=== PATIENT | male | born 1930 | race Caucasian/White ===

== ENCOUNTER → 2016-07-28 | Outpatient (REF) | payer MEDICARE, BC ==
[2016-07-28 10:52] LABS: BASOPHILS % (AUTO) 0 % (0-2); EOSINOPHILS # (AUTO) 0.1 10^3uL; EOSINOPHILS % (AUTO) 2 % (0-4); LYMPHOCYTES # (AUTO) 1.1 X10^3; MEAN PLATELET VOLUME 11.5 FL (6.0-9.5); MONOCYTES # (AUTO) 0.8 X10^3; MONOCYTES % (AUTO) 12 % (3-11); NEUTROPHILS # (AUTO) 4.7 X10^3; NEUTROPHILS % (AUTO) 69 % (51-67); PLATELET COUNT 220 10^3uL (150-450); WHITE BLOOD COUNT 6.82 10^3uL (4.0-11.0)
[2016-07-28 10:54] LABS: MEAN CORPUSCULAR HEMOGLOBIN 23.7 PG (26.0-34.0); MEAN CORPUSCULAR HGB CONC 31.2 g/dL (31.0-37.0); MEAN CORPUSCULAR VOLUME 76 FL (80-100)
[2016-07-28 10:59] LABS: ANION GAP 17.2 MEQ/L (3-15); CALCULATED IONIZED CALCIUM 4.2 mg/dL (3.8-4.6); TOTAL PROTEIN 7.1 g/dL (6.4-8.5)
== END ==
LOC: LAB 09:43
PROVIDERS: ATTEND Family Medicine
DX: D64.89 Other specified anemias (principal); I50.21 Acute systolic (congestive) heart failure; E11.9 Type 2 diabetes mellitus without complications; I48.1 Persistent atrial fibrillation
CPT/HCPCS: 80053; 83036; 85025; 85610

== ENCOUNTER 2016-07-29 09:46 | Inpatient (IN) | payer MEDICARE ==
[~2016-07-29] VITALS: Ht 175.3 cm; Wt 94.7 kg
--- NOTE | 2016-07-29 09:51 | NUR ---
Pt admitted to room 308 via w/c accompanied by .
[2016-07-29 10:06] VITALS: BP 150/53
[2016-07-29] MEDS ORDERED: PROMETHAZINE HCL INJ 12.5 MG in SODIUM CHLORIDE 25 ML IV PRN (10:15)
[2016-07-29] MEDS ORDERED: MAG HYDROX/AL HYDROX/SIMETH 200-200-20/5 ML (MAG-AL PLUS) 30 ML UDC PO PRN (10:15)
[2016-07-29] MEDS ORDERED: ONDANSETRON 4 MG (ZOFRAN) ORAL DISSOLVE TAB PO PRN (10:15)
[2016-07-29] MEDS ORDERED: ACETAMINOPHEN 325 MG TAB (TYLENOL) PO PRN (10:15)
[2016-07-29] MEDS ORDERED: CALCIUM CARBONATE CHEWABLE 300 MG (TUMS) TABLET PO PRN (10:15)
[2016-07-29] MEDS ORDERED: GLUCAGON EMERGENCY 1 MG/KIT IM PRN (10:20)
[2016-07-29] MEDS ORDERED: DEXTROSE ORAL GEL (GLUTOSE 40%) 15 GM TUBE PO PRN (10:20)
[2016-07-29] MEDS ORDERED: DEXTROSE 50% 25 GM/50 ML SYRINGE IV PRN (10:20)
[2016-07-29 10:21] VITALS: BP 150/53
--- NOTE | 2016-07-29 10:35 | NUR ---
Pt to rad for CXR.
--- NOTE | 2016-07-29 10:43 | NUR ---
Back to room from Radiology. Eli RT in room for EKG. Accu Check finger stick- 362. Will correct with sliding scale insulin. 20g IV started by this nurse to RFA on first attempt without difficulty.
[2016-07-29 10:50] LABS: BASOPHILS % (AUTO) 0 % (0-2); EOSINOPHILS # (AUTO) 0.1 10^3uL; EOSINOPHILS % (AUTO) 2 % (0-4); LYMPHOCYTES # (AUTO) 0.6 X10^3; MEAN PLATELET VOLUME 11.1 FL (6.0-9.5); MONOCYTES # (AUTO) 0.8 X10^3; MONOCYTES % (AUTO) 14 % (3-11); NEUTROPHILS % (AUTO) 73 % (51-67); PLATELET COUNT 195 10^3uL (150-450); WHITE BLOOD COUNT 5.53 10^3uL (4.0-11.0)
[2016-07-29 10:53] LABS: ALBUMIN 4.1 g/dL (3.4-5.0); ALKALINE PHOSPHATASE 90 U/L (38-126); ANION GAP 17.3 MEQ/L (3-15); BUN/CREATININE RATIO 18 (10-20); TOTAL PROTEIN 7.3 g/dL (6.4-8.5)
[2016-07-29] MEDS: INSULIN LISPRO 1 UNIT/0.01 ML (HUMALOG) DOSE SC SCH ×5 (10:58→21:00)
[2016-07-29 11:04] LABS: MEAN CORPUSCULAR HEMOGLOBIN 23.7 PG (26.0-34.0); MEAN CORPUSCULAR HGB CONC 31.7 g/dL (31.0-37.0); MEAN CORPUSCULAR VOLUME 75 FL (80-100)
[2016-07-29 11:09] VITALS: BP 126/57
[2016-07-29] MEDS ORDERED: NS FLUSH 3 ML PRN IV (11:35)
[2016-07-29] MEDS ORDERED: NS FLUSH 10 ML PRN IV (11:35)
[2016-07-29] MEDS ORDERED: FUROSEMIDE 100 MG/10 ML (LASIX) VIAL IV ONE (12:00)
[2016-07-29] MEDS ORDERED: NITROGLYCERIN SUBLINGUAL 0.4 MG (NITROQUICK) TABLET SL PRN (12:10)
[2016-07-29] MEDS ORDERED: ALBUTEROL/IPRATROPIUM 3MG-0.5MG/3ML (DUONEB) NEB VIAL INH PRN (12:15)
[2016-07-29 13:57] LABS: BILIRUBIN,URINE Negative (Negative); CLARITY,URINE Clear; COLOR,URINE Yellow; GLUCOSE, URINE (UA) 2+ (Negative); LEUKOCYTE ESTERASE ,URINE Negative (Negative); PH,URINE 6.5 (5.0 - 8.0); UROBILINOGEN,URINE 0.2 mg/dL (0.2-1.0)
[2016-07-29 14:23] LABS: RBC,URINE 0-2 /HPF; URINE CENTRIFUGED VOLUME 12 mL
--- NOTE | 2016-07-29 14:25 | NUR ---
MED REC COMPLETE--current list obtained from medication list provided by patient's PCP, patient report, and external med history application.
[2016-07-29] MEDS: FUROSEMIDE 100 MG/10 ML (LASIX) VIAL IV SCH (14:27)
--- NOTE | 2016-07-29 14:50 | NUR ---
Pt sitting up in chair in room. His and his sister are at bedside visiting patient. SL intact. Lasix 60mg given as ordered. Pt jokes with staff and is pleasant.
[2016-07-29 16:07] VITALS: BP 91/49
[2016-07-29] MEDS: warFARin 5 MG (COUMADIN) TAB PO SCH (17:28)
--- NOTE | 2016-07-29 18:00 | NUR ---
Pt sitting on edge of bed eating supper meal, denies needs. Remains on RA. Has voided approx 2,375ml clear yellow urine since admission.
--- NOTE | 2016-07-29 19:27 | NUR ---
IS instructed, Pt has good effort and technique with good breath hold. Pt has good understanding of the purpose of IS. 1500 ml x5.
[2016-07-29 20:11] VITALS: BP 140/61
[2016-07-29] MEDS: ATORVASTATIN 40 MG (LIPITOR) TABLET PO SCH (20:19)
[2016-07-29] MEDS ORDERED: BUDESONIDE NEBS 0.5 MG/2ML (PULMICORT) AMP INH SCH (21:00)
[2016-07-29] MEDS ORDERED: FLUTICASONE 220 MCG INH SCH (21:00)
[2016-07-29] MEDS: INSULIN DETEMIR 1 UNIT/0.01 ML (LEVEMIR) DOSE SC SCH (21:28)
[2016-07-30 00:04] VITALS: BP 140/60
[2016-07-30 04:25] VITALS: BP 151/63
[2016-07-30] MEDS: LEVOTHYROXINE 75 MCG (LEVOTHROID) TABLET PO SCH (06:18)
--- NOTE | 2016-07-30 06:36 | NUR ---
Patient rests in bed throughout night. Reports that he is able to breathe much better since admission. Sitting on bedside drinking coffee this AM. No needs at this time.
[2016-07-30] MEDS: INSULIN LISPRO 1 UNIT/0.01 ML (HUMALOG) DOSE SC SCH ×7 (07:08→21:00)
[2016-07-30 07:44] VITALS: BP 129/64
[2016-07-30] MEDS: ISOSORBIDE MONONITRATE 30 MG (IMDUR) TAB PO SCH (08:12)
[2016-07-30] MEDS: POTASSIUM CHLORIDE ER 20 MEQ TABLET PO SCH ×3 (08:12→21:33)
[2016-07-30] MEDS: CYANOCOBALAMIN 1000 MCG (VITAMIN B-12) TABLET PO SCH (08:12)
[2016-07-30] MEDS: VALSARTAN 160 MG (DIOVAN) TABLET PO SCH (08:13)
[2016-07-30] MEDS: meTOproloL SUCCINATE 50 MG (TOPROL XL) TAB PO SCH (08:13)
[2016-07-30] MEDS: ASPIRIN 81 MG CHEW (CHILDREN'S ASA) PO SCH (08:14)
[2016-07-30] MEDS: SPIRONOLACTONE 25 MG (ALDACTONE) TABLET PO SCH (08:14)
[2016-07-30] MEDS: FUROSEMIDE 100 MG/10 ML (LASIX) VIAL IV SCH ×2 (08:15→13:30)
[2016-07-30] MEDS: NS FLUSH 3 ML DAILY IV SCH (08:19)
--- NOTE | 2016-07-30 08:26 | NUR ---
NUTRITION ASSESSMENT Level 1 Patient: Judah Esposito Age/Sex: 85/M Date Screened: 07-30-16 Weight: 205.7#/93.5 kg Height: 69 inches Primary Diagnosis: CHF Diet Order: 2 g. sodium Relevant labs: glucose 126 (388 on admission) Food allergies: N Nutrition Assessment Criteria Age over 80: 4 points Body Mass Index (BMI) under 19: N Admission Screening Indicates Risk? N Moderate/High Risk Diagnosis: 3 points TPN or PPN: N NPO or clear liquid diet: N Serum Glucose <70 or >180: 3 points Hgb A1c >6.7: N/A Total: 10 points Risk Screen: __ Patient at low nutritional risk based on available data; reevaluate in 5-7 days __ Patient at moderate nutritional risk based on available data; reevaluate in 3-5 days _X_ Patient at high nutritional risk; complete Nutrition Assessment within 48 hours of admission.
[2016-07-30] MEDS ORDERED: ERGOCALCIFEROL 50,000 UNITS (1.25 MG) CAPSULE (VITAMIN D2) PO SCH (09:00)
[2016-07-30] MEDS ORDERED: POTASSIUM CHLORIDE ER 20 MEQ TABLET PO SCH (09:00)
--- NOTE | 2016-07-30 09:00 | NUR ---
IV SL intact to RFA. Flushes without difficulty. Fluid restriction explained to patient- verbalizes understanding.
--- NOTE | 2016-07-30 09:49 | NUR ---
NUTRITION ASSESSMENT Level II Patient: Judah Esposito Age/Sex: 85/M Date Assessed: 07-30-16 ASSESSMENT Pertinent History: Patient admitted with CHF and screened at high nutritional risk secondary to diagnosis and elderly age, with elevated blood sugar. PMHx includes CHF, a fib, HTN, diabetes, hypothyroidism, COPD, CAD and hx. tobacco abuse. He lives at home with his . Pt. denied GI concerns, and reports 4# weight gain from fluid. Meds/Nutrition: KCl, B 12, vitamin D, ASA, Spironolactone, Synthroid, Levemir, Coumadin, Lasix, Humalog Weight: 205.7#/93.5 kg Height: 69 inches Body Mass Index (BMI): 30.4 [place] Body Weight : 160#/72.7 kg % IBW: 128% GASTROINTESTINAL Appetite: good, eating 100% Diet Order: 2 g. sodium, medium diabetic, fluid restriction Unintentional loss of >10 lbs. in 3 months: N Difficult to chew/swallow: N Diabetes: Yes Relevant Labs: glucose 126 (388 on admission) Calculations for Nutritional Assessment Estimated calorie needs: 22-25 kcals/kg = 2,040-2,325 kcals Estimated protein needs: 1.0-1.1 g/kg ABW = 77-85 g./day DIAGNOSIS 1. Nutrition Diagnosis: Decreased sodium needs related to heart failure as evidenced by 4# weight gain with diagnosis. NUTRITIONAL INTERVENTION Goal: Patient will receive adequate nutrition to meet his needs. Plan: Will provide 2 g. sodium, medium diabetic diet as ordered, along with fluid restriction on meal trays per physician order. Will monitor intake for adequacy and adjust as needed. MONITORING & EVALUATION _X_ Monitor patients menu selections _X_ Monitor patients food intake per nursing notes __ Monitor NPO/clear liquid days _X_ Monitor lab values _X_ Monitor I&O _X_ Other--monitor weight
[2016-07-30 12:00] VITALS: BP 94/50
--- NOTE | 2016-07-30 13:20 | NUR ---
Notified Dr. Agee of BP 94/50 before administration of Lasix 60mg IV- okayed to given now. Lasix given. Pt has had and family visiting multiple times this shift. Pt ambulates indep in room. Educated patient to call for assist if he feels dizzy upon standing. Verbalizes understanding. Denies dizziness.
--- NOTE | 2016-07-30 15:19 | NUR ---
Pt ambulating halls with Melquiades Ramos PT. No c/o. Raina and callies with staff.
[2016-07-30 15:47] VITALS: BP 116/57
[2016-07-30] MEDS: warFARin 5 MG (COUMADIN) TAB PO SCH (17:35)
--- NOTE | 2016-07-30 17:54 | NUR ---
Pt sitting on edge of bed eating supper meal. Pt denies needs at this time. Resp rate even, nonlab. Remains on RA. Skin warm, dry. call light within reach.
--- NOTE | 2016-07-30 20:00 | NUR ---
Resting in bed. Watching TV. Is up ad katalina in room. Alert and oriented at this time. No SOA. No concerns at this time.
[2016-07-30 20:16] VITALS: BP 103/57
--- NOTE | 2016-07-30 20:55 | NUR ---
Pt denies any shortness of breath, No PRN intervention indicated.
[2016-07-30] MEDS: INSULIN DETEMIR 1 UNIT/0.01 ML (LEVEMIR) DOSE SC SCH (21:00)
--- NOTE | 2016-07-30 21:00 | NUR ---
Accu Check 75mg/dl. Dr Richardson notified of ordered HS insulin being [address] ordered 10 units of Levemir to be given at HS.
[2016-07-30] MEDS ORDERED: INSULIN DETEMIR 1 UNIT/0.01 ML (LEVEMIR) DOSE SC ONE (21:25)
[2016-07-30] MEDS: ATORVASTATIN 40 MG (LIPITOR) TABLET PO SCH (21:33)
--- NOTE | 2016-07-31 | NUR ---
Resting in bed. Remains oriented. Denies need for Tylenol. Denies pain, just cant sleep. Patient uses call light when he needs something. Call light within reach.
[2016-07-31 00:12] VITALS: BP 93/54
[2016-07-31 04:43] VITALS: BP 112/62
[2016-07-31 06:01] LABS: MEAN PLATELET VOLUME 10.8 FL (6.0-9.5); PLATELET COUNT 198 10^3uL (150-450); WHITE BLOOD COUNT 6.49 10^3uL (4.0-11.0)
[2016-07-31 06:05] LABS: ABSOLUTE RETIC # 57 10^3uL (22-82); MEAN CORPUSCULAR HEMOGLOBIN 23.4 PG (26.0-34.0); MEAN CORPUSCULAR HGB CONC 31.2 g/dL (31.0-37.0); MEAN CORPUSCULAR VOLUME 75 FL (80-100)
--- NOTE | 2016-07-31 06:19 | NUR ---
Accu Check is 126 mg/dl. Patient did lay back down to rest this morning. Very pleasant. Seems a little confused this morning. Call light within reach.
[2016-07-31] MEDS: LEVOTHYROXINE 75 MCG (LEVOTHROID) TABLET PO SCH (06:26)
[2016-07-31 06:30] LABS: ANISOCYTOSIS SLIGHT; BAND NEUTROPHILS % 0 % (0-6); EOSINOPHILS % 4 % (0-4); LYMPHOCYTES # 1.5 #; MONOCYTES % 17 % (3-11); RBC MORPH SEE REFERENCE (NORMAL); SEGMENTED NEUTROPHILS % 56 % (51-67); TOTAL CELLS COUNTED 100
[2016-07-31 06:53] LABS: ALBUMIN 3.7 g/dL (3.4-5.0); ANION GAP 13.4 MEQ/L (3-15); MAGNESIUM* 2.2 mg/dL (1.6-2.3); PHOSPHORUS 3.8 mg/dL (2.4-4.9)
[2016-07-31] MEDS: INSULIN LISPRO 1 UNIT/0.01 ML (HUMALOG) DOSE SC SCH ×2 (07:30→08:37)
[2016-07-31 07:51] VITALS: BP 129/51
[2016-07-31] MEDS ORDERED: METOLAZONE 2.5 MG (ZAROXOLYN) TAB PO SCH (08:30)
[2016-07-31] MEDS: ASPIRIN 81 MG CHEW (CHILDREN'S ASA) PO SCH (08:33)
[2016-07-31] MEDS: CYANOCOBALAMIN 1000 MCG (VITAMIN B-12) TABLET PO SCH (08:34)
[2016-07-31] MEDS: SPIRONOLACTONE 25 MG (ALDACTONE) TABLET PO SCH (08:34)
[2016-07-31] MEDS: meTOproloL SUCCINATE 50 MG (TOPROL XL) TAB PO SCH (08:34)
[2016-07-31] MEDS: ISOSORBIDE MONONITRATE 30 MG (IMDUR) TAB PO SCH (08:34)
[2016-07-31] MEDS: VALSARTAN 160 MG (DIOVAN) TABLET PO SCH (08:34)
[2016-07-31] MEDS: POTASSIUM CHLORIDE ER 20 MEQ TABLET PO SCH (08:34)
[2016-07-31] MEDS: NS FLUSH 3 ML DAILY IV SCH (08:40)
[2016-07-31] MEDS: FUROSEMIDE 100 MG/10 ML (LASIX) VIAL IV SCH (10:05)
[2016-07-31 11:43] VITALS: BP 112/52
[2016-07-31] MEDS ORDERED: FERROUS SULFATE 325 MG (IRON) TABLET PO SCH (12:00)
--- NOTE | 2016-07-31 12:10 | NUR ---
Reviewed discharge medications with patient. Provided patient handout information for new medications. No additional questions or concerns. Patient verbalized understanding of medications.
--- NOTE | 2016-07-31 12:14 | NUR ---
Discharge instructions reviewed with patient, demonstrates understanding. SL removed with catheter tip intact. Skin warm, dry, intact. Resprs nonlabored, even on RA. Lab orders for discharge faxed to the lab. Pharmacy reviewed mediations. Pt dismissed at this time via ambulation accompanied by Lori Reeder CNA to [facility] who will transport him home. Belongings and DC packet sent home with patient.
[2016-07-31 15:17] LABS: IRON 20 ug/dL (65-175); UNBOUND IRON CONTENT 389 ug/dl (126-382)
== END 2016-07-31 12:14 | disposition home or self-care (01) | DRG 291 ==
LOC: MED/SURG 09:46
PROVIDERS: ADMIT Internal Medicine; ATTEND Internal Medicine
DX: I13.0 Hypertensive heart and chronic kidney disease with heart failure and stage 1 through stage 4 chronic kidney disease, or unspecified chronic kidney disease (principal); I50.23 Acute on chronic systolic (congestive) heart failure; N17.9 Acute kidney failure, unspecified; E11.22 Type 2 diabetes mellitus with diabetic chronic kidney disease; N18.9 Chronic kidney disease, unspecified; D50.9 Iron deficiency anemia, unspecified; I48.91 Unspecified atrial fibrillation; E03.9 Hypothyroidism, unspecified; I25.119 Atherosclerotic heart disease of native coronary artery with unspecified angina pectoris; J44.9 Chronic obstructive pulmonary disease, unspecified; Z79.01 Long term (current) use of anticoagulants; Z95.1 Presence of aortocoronary bypass graft; Z87.891 Personal history of nicotine dependence
CPT/HCPCS: 36415; 71020; 80053; 80069; 81003; 81015; 82728; 83540; 83550; 83735; 83880; 84443; 84484; 85025; 85045; 85610; 86140; 93005